=== PATIENT | male | born 1990 | race Caucasian/White ===

== ENCOUNTER 2018-10-30 07:41 | Outpatient (CLI) | payer OTHER ==
[2018-10-30 08:36] LABS: eGFR (Non-African) > 60
[2018-10-30 08:55] LABS: BASOPHILS % 0.6 (0.0-1.5); EOSINOPHILS % 2.5 % (0.0-6.8); MEAN CORPUSCULAR HEMOGLOBIN 30.1 pg (28.0-34.0); MONOCYTES % 4.4 % (0.0-11.0); NEUTROPHILS # 2.7 # k/uL (1.4-7.7)
== END 2018-10-30 07:42 ==
LOC: LAB 07:41
PROVIDERS: ATTEND Family Medicine
DX: R07.9 Chest pain, unspecified (principal); Z95.2 Presence of prosthetic heart valve
CPT/HCPCS: 36415; 80053; 85025; 85379; 85610